=== PATIENT | female | born 1995 | race Caucasian/White ===

== ENCOUNTER 2018-07-18 00:06 | Emergency (ER) | payer OTHER ==
[2018-07-18] MEDS ORDERED: NA CHLORIDE 0.9% 1,000 ML ONE (00:32)
[2018-07-18 00:48] LABS: Absolute Lymphocytes (CBC) 2.5 K/uL (0.7-4.9); Absolute Monocytes 0.8 K/uL (0.1-1.3); Absolute Neutrophil 5.9 K/uL (1.8-8.0); Basophils % 0.6 % (0-1.3); Eosinophils % 1.8 % (0-4.4); Hematocrit 43.7 % (36.0-45.0); Lymphocytes % 26.6 % (15.3-44.8); MPV 9.6 fL (7.6-11.3); Monocytes % 8.4 % (3.3-12.3); RBC Red Blood Cell Count 4.95 M/uL (3.86-4.86)
[2018-07-18 00:50] LABS: Urine Blood NEGATIVE (NEG); Urine Glucose NEGATIVE (NEG); Urine Protein NEGATIVE (NEG); Urine pH 5.5 (5.0-7.0)
[2018-07-18 00:58] LABS: BUN Blood Urea Nitrogen 12 mg/dL (7-18); Bicarbonate 28 mmol/L (21-32); Glucose Level 108 mg/dL (74-106); Potassium 3.6 mmol/L (3.5-5.1); Sodium Level 140 mmol/L (136-145); Urine Bacteria <20 /HPF (<20); Urine Culture Reflex Order NOT NEEDED; Urine RBC NONE SEEN /HPF (NONE SEEN)
--- NOTE | 2018-07-18 01:32 | ER ---
Nurse's Notes [facility] Department Name: Dakotah Aguillon Age: 22 yrs Sex: Female : 1995 Arrival Date: 07/18/2018 Time: 00:09 Bed 17 Private MD: Diagnosis: Urinary tract infection, site not specified Presentation: 07/18 00:10 Presenting complaint: Patient states: that on the she started to have burning with fc urination and frequency. On the she went to urgent care and was given Nitrofurantoin. Pt has taken 3 doses and is now having bilateral flank and lower back pain. Continues to have burning with urination and fever. Transition of care: patient was not received from another setting of care. Onset of symptoms was July 14, 2018. Risk Assessment: Do you want to hurt yourself or someone else? Patient reports no desire to harm self or others. Initial Sepsis Screen: Does the patient meet any 2 criteria? No. Patient's initial sepsis screen is negative. Does the patient have a suspected source of infection? No. Patient's initial sepsis screen is negative. Care prior to arrival: None. 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 - Social history:: Smoking status: Patient/guardian denies using tobacco, Patient/guardian denies using alcohol, street drugs. - Ebola Screening: : Patient negative for fever greater than or equal to 101.5 degrees Fahrenheit, and additional compatible Ebola Virus Disease symptoms Patient denies exposure to infectious person Patient denies travel to an Ebola-affected area in the 21 days before illness onset. Screenin:55 Abuse screen: Denies threats or abuse. Nutritional screening: No deficits noted. ea Tuberculosis screening: No symptoms or risk factors identified. Fall Risk Assessment: 00:25 General: Appears in no apparent distress. Behavior is calm, cooperative, appropriate ea for age. Pain: Complains of pain in right flank and left flank. Neuro: Level of Consciousness is awake, alert, obeys commands, Oriented to person, place, time, situation. Cardiovascular: Patient's skin is warm and dry. Respiratory: Airway is patent Respiratory effort is even, unlabored, Respiratory pattern is regular, symmetrical. GI: No signs and/or symptoms were reported involving the gastrointestinal system. Derm: Skin is pink, warm \T\ dry. Musculoskeletal: Circulation, motion, and sensation intact. 01:43 Reassessment: Patient and/or family updated on plan of care and expected duration. Pain ea level reassessed. Patient is alert, oriented x 3, equal unlabored respirations, skin warm/dry/pink. Discharge instructions given to patient, verbalized the understanding of instructions. Vital Signs: 00:10 BP 129 / 78; Pulse 82; Resp 18; Temp 98.5(O); Pulse Ox 100% on R/A; Weight 59.87 kg fc (R); Height 5 ft. 4 in. (162.56 cm) (R); Pain 6/10; 01:40 BP 103 / 57; Pulse 78; Resp 16 S; Pulse Ox 99% on R/A; ea 00:10 Body Mass Index 22.66 (59.87 kg, 162.56 cm) ED Course: 00:09 Patient arrived in ED. am2 00:10 Arm band placed on Patient placed in an exam room, on a stretcher. fc 00:17 Prabha Evans FNP-C is PHCP. kb 00:17 Sánchez Dugan MD is Attending Physician. kb 00:19 Birdie Subramanian RN is Primary Nurse. ea 00:22 Triage completed. fc 00:25 Inserted saline lock: 20 gauge in right antecubital area, using aseptic technique. ea Blood collected. 00:54 Patient has correct armband on for positive identification. Placed in gown. Bed in low ea position. Call light in reach. Side rails up X2. 01:44 No provider procedures requiring assistance completed. IV discontinued, intact, ea bleeding controlled, No redness/swelling at site. Pressure dressing applied. Administered Medications: 00:35 Drug: NS 0.9% 1000 ml Route: IV; Rate: 1000 ml; Site: right antecubital; ea 01:15 Follow up: Response: No adverse reaction; IV Status: Completed infusion; IV Intake: ea 1000ml Intake: 01:15 IV: 1000ml; Total: 1000ml. ea Outcome: 01:32 Discharge ordered by . kb 01:45 Discharged to home ambulatory, with family. ea 01:45 Condition: good 01:45 Discharge instructions given to family, Instructed on discharge instructions, follow up and referral plans. Demonstrated understanding of instructions, follow-up care. 01:48 Patient left the ED. ea Signatures: Prabha Evans, RADHA-Mariella GARCIA-Carleen Pappas, RN RN Fawn Banerjee Elena, RN RN ea
--- NOTE | 2018-07-18 01:32 | EDPHYS ---
Physician Documentation [facility] Name: Dakotah Aguillon Age: 22 yrs Sex: Female : 1995 Arrival Date: 07/18/2018 Time: 00:09 Bed 17 Private MD: ED Physician Sánchez Dugan HPI: 07/18 00:28 This 22 yrs old Female presents to ER via Ambulatory with complaints of Flank kb Pain. 00:28 The patient complains of pain in the left flank and right flank. The pain does not kb radiate. Onset: The symptoms/episode began/occurred 3 day(s) ago. Modifying factors: The symptoms are alleviated by nothing. the symptoms are aggravated by palpation/percussion. Associated signs and symptoms: Pertinent positives: dysuria, fever, urinary frequency. Severity of pain: At its worst the pain was moderate in the emergency department the pain is unchanged. The patient has not experienced similar symptoms in the past. The patient has not recently seen a physician. Pt started having frequency, urgency and dysuria 3 days ago. Went to UC yesterday and was given Macrobid for UTI and told to come to ER if flank pain develops. Started having bilateral flank pain today that has been getting progressively worse. . 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 - Social history:: Smoking status: Patient/guardian denies using tobacco, Patient/guardian denies using alcohol, street drugs. - Ebola Screening: : Patient negative for fever greater than or equal to 101.5 degrees Fahrenheit, and additional compatible Ebola Virus Disease symptoms Patient denies exposure to infectious person Patient denies travel to an Ebola-affected area in the 21 days before illness onset. ROS: 00:27 ENT: Negative for injury, pain, and discharge, Neck: Negative for injury, pain, and kb swelling, Cardiovascular: Negative for chest pain, palpitations, and edema, Respiratory: Negative for shortness of breath, cough, wheezing, and pleuritic chest pain, Abdomen/GI: Negative for abdominal pain, nausea, vomiting, diarrhea, and constipation, MS/Extremity: Negative for injury and deformity, Skin: Negative for injury, rash, and discoloration, Neuro: Negative for headache, weakness, numbness, tingling, and seizure. 00:27 Constitutional: Positive for fever, Negative for body aches, chills, fatigue, malaise, poor PO intake, weight loss. 00:27 : Positive for urinary symptoms, flank pain, urinary frequency, burning with urination. Exam: 00:28 Constitutional: This is a well developed, well nourished patient who is awake, alert, kb and in no acute distress. Head/Face: Normocephalic, atraumatic. ENT: Nares patent. No nasal discharge, no septal abnormalities noted. Tympanic membranes are normal and external auditory canals are clear. Oropharynx with no redness, swelling, or masses, exudates, or evidence of obstruction, uvula midline. Mucous membranes moist. Neck: Trachea midline, no thyromegaly or masses palpated, and no cervical lymphadenopathy. Supple, full range of motion without nuchal rigidity, or vertebral point tenderness. No Meningismus. Chest/axilla: Normal chest wall appearance and motion. Nontender with no deformity. No lesions are appreciated. Cardiovascular: Regular rate and rhythm with a normal S1 and S2. No gallops, murmurs, or rubs. Normal PMI, no JVD. No pulse deficits. Respiratory: Lungs have equal breath sounds bilaterally, clear to auscultation and percussion. No rales, rhonchi or wheezes noted. No increased work of breathing, no retractions or nasal flaring. Abdomen/GI: Soft, non-tender, with normal bowel sounds. No distension or tympany. No guarding or rebound. No evidence of tenderness throughout. Skin: Warm, dry with normal turgor. Normal color with no rashes, no lesions, and no evidence of cellulitis. MS/ Extremity: Pulses equal, no cyanosis. Neurovascular intact. Full, normal range of motion. Neuro: Awake and alert, GCS 15, oriented to person, place, time, and situation. Cranial nerves II-XII grossly intact. Motor strength 5/5 in all extremities. Sensory grossly intact. Cerebellar exam normal. Normal gait. 00:28 Back: pain, that is mild, that is moderate, of the left flank and right flank, CVA tenderness, that is mild, is noted bilaterally. Vital Signs: 00:10 BP 129 / 78; Pulse 82; Resp 18; Temp 98.5(O); Pulse Ox 100% on R/A; Weight 59.87 kg fc (R); Height 5 ft. 4 in. (162.56 cm) (R); Pain 6/10; 01:40 BP 103 / 57; Pulse 78; Resp 16 S; Pulse Ox 99% on R/A; ea 00:10 Body Mass Index 22.66 (59.87 kg, 162.56 cm) fc MDM: 00:17 Patient medically screened. kb 00:26 Data reviewed: vital signs, nurses notes. Data interpreted: Pulse oximetry: on room air kb is 100 %. Interpretation: normal. 01:31 Counseling: I had a detailed discussion with the patient and/or guardian regarding: the kb historical points, exam findings, and any diagnostic results supporting the discharge/admit diagnosis, lab results, the need for outpatient follow up, a family practitioner, to return to the emergency department if symptoms worsen or persist or if there are any questions or concerns that arise at home. 07/18 00:17 Order name: CBC with Diff; Complete Time: 01:03 kb 07/18 00:17 Order name: Basic Metabolic Panel; Complete Time: 01:03 kb 07/18 00:17 Order name: Urine Microscopic Only; Complete Time: 01:03 kb 07/18 00:40 Order name: Urine Dipstick--Ancillary (enter results); Complete Time: 01:03 mt 07/18 00:40 Order name: Urine --Ancillary (enter results); Complete Time: 01:03 mt 07/18 00:17 Order name: IV Start; Complete Time: 00:57 kb 07/18 00:17 Order name: Urine Dipstick-Ancillary (obtain specimen); Complete Time: 00:57 kb Administered Medications: 00:35 Drug: NS 0.9% 1000 ml Route: IV; Rate: 1000 ml; Site: right antecubital; ea 01:15 Follow up: Response: No adverse reaction; IV Status: Completed infusion; IV Intake: ea 1000ml Disposition: 07/18/18 01:32 Discharged to Home. Impression: Urinary tract infection, site not specified. - Condition is Stable. - Discharge Instructions: Urinary Tract Infection, Adult, [id number]. - Medication Reconciliation Form, Thank You Letter, Antibiotic Education, Prescription Opioid Use form. - Follow up: Emergency Department; When: As needed; Reason: Worsening of condition. Follow up: Private Physician; When: 2 - 3 days; Reason: Recheck today's complaints, Continuance of care, Re-evaluation by your physician. Addendum: 07/20/2018 07:03 Co-signature as Attending Physician, Sánchez Dugan MD I agree with the assessment and k dr plan of care. Signatures: Dispatcher [employer] EDMS Prabha Evans, PARENT PARTNER-C PARENT PARTNER-CkSánchez Medel MD MD [facility] Carleen Limon, RN RN Birdie Lau RN RN ea Corrections: (The following items were deleted from the chart) 07/18 01:48 01:32 07/18/2018 01:32 Discharged to Home. Impression: Urinary tract infection, site ea not specified. Condition is Stable. Forms are Medication Reconciliation Form, Thank You Letter, Antibiotic Education, Prescription Opioid Use. Follow up: Emergency Department; When: As needed; Reason: Worsening of condition. Follow up: Private Physician; When: 2 - 3 days; Reason: Recheck today's complaints, Continuance of care, Re-evaluation by your physician. kb
== END 2018-07-18 01:48 | disposition home or self-care (01) ==
LOC: ER 00:06
DX: N39.0 Urinary tract infection, site not specified (principal)
CPT/HCPCS: 36415; 80048; 81003; 81015; 81025; 85025; 96360; 99283; J7030